=== PATIENT | female | born 1985 | race Caucasian/White ===

== ENCOUNTER 2017-08-13 09:26 | Emergency (ER) | payer OTHER, SELFPAY ==
[2017-08-13 09:34] VITALS: BP 132/93; PULSE 101; RESP 18; TEMP 37.4; O2SAT 99; BMI 19.1
--- NOTE | 2017-08-13 09:52 | ED_ITS ---
HPI - Wound/Laceration General Chief Complaint: Wound/Laceration Stated Complaint: LT PINKY FINGER CUT Time Seen by Provider: 08/13/17 09:29 Source: patient Mode of arrival: ambulatory Limitations: no limitations History of Present Illness HPI narrative: 31 year old woman tripped at home 45 minutes ago and landed on broken glass. Cut left pinky finger. Denies weakness, numbness or lack of sensation to the distal extremity Related Data Home Medications Medication Instructions Recorded Confirmed ibuprofen [Advil Liqui-Gel] 800 mg PO PRN PRN #0 07/07/16 Allergies Allergy/AdvReac Type Severity Reaction Status Date / Time mite-Dermatophagoides Allergy Mild Verified 08/13/17 09:34 farinae, zoe mold Allergy Mild Verified 08/13/17 09:34 Review of Systems Review of Systems All systems reviewed & are unremarkable except as noted in HPI and below Constitutional Denies chills, Denies fever(s), Denies lethargy and Denies weakness Eyes Denies change in vision, Denies eye discharge, Denies irritation and Denies loss of vision ENT Ears, Nose, Mouth, and Throat: Denies change in voice, Denies neck pain and Denies sore throat Cardiovascular Denies chest pain, Denies irregular heart rhythm, Denies lightheadedness, Denies palpitations, Denies dyspnea, Denies dyspnea on exertion and Denies orthopnea Respiratory Denies cough, Denies dyspnea, Denies dyspnea on exertion and Denies wheezing Gastrointestinal Gastrointestinal: Denies abdominal pain, Denies change in bowel habits, Denies diarrhea, Denies nausea and Denies vomiting Genitourinary Denies hematuria, Denies flank pain, Denies urinary incontinence and Denies urinary urgency Musculoskeletal Denies neck pain Integumentary/Breasts Denies pruritus, Denies erythema, Denies rash and Reports wounds Comments: laceration Neurologic Denies confusion, Denies loss of vision and Denies weakness Psychiatric Denies anxiety, Denies confusion, Denies depression, Denies homicidal ideation and Denies suicidal ideation Endocrine Denies palpitations Hematologic/Lymphatic Denies easy bruising Allergic/Immunologic Denies wheezing PFSH Social History Smoking Status: Current every day smoker Exam Initial Vital Signs Initial Vital Signs: Vital Signs Temperature 99.3 F 08/13/17 09:34 Pulse Rate 101 H 08/13/17 09:34 Respiratory Rate 18 08/13/17 09:34 Blood Pressure 132/93 H 08/13/17 09:34 Pulse Oximetry 99 08/13/17 09:34 Const General: cooperative and well developed Nutritional Appearance: well nourished Orientation: alert, awake, oriented x3 and not confused [facility] Head: normocephalic and atraumatic Ears: external ears normal and TM's normal bilaterally Nose: external nose normal and No nasal discharge Face and sinus: sinuses nontender, face symmetric, no sinus tenderness and No dry mucous membranes Mouth: oral mucosae normal and moist mucous membranes Teeth and gingiva: dentition normal Throat: tonsils normal and uvula midline Eyes General: appearance normal, both eyes and all related structures Eyelids: eyelids normal Conjunctivae: conjunctivae normal Sclera: sclerae normal Pupils: PERRL EOM: EOM intact bilaterally Neck Neck: normal visual inspection, trachea midline, No lymphadenopathy, No midline deformity and No JVD Lymphatic: No lymphedema Chest Chest: normal inspection of the chest Resp Effort & Inspection: normal respiratory effort, able to speak in complete sentences, no respiratory distress and no use of accessory muscles Auscultation: clear to auscultation bilaterally, no rales, no rhonchi and no wheezes Cardio Rate: regular rate Rhythm: regular rhythm Heart Sounds: no click, no gallops, no murmurs and no rubs Pulses: normal peripheral pulses GI Inspection: non-distended Palpation: soft, no hepatosplenomegaly, No guarding, No pulsatile mass and No tender Auscultation: normal bowel sounds Back/Spine/Pelvis Back: No CVA tenderness Cervical Spine: cervical ROM normal and No pain with cervical ROM Thoracic/Lumbar Spine: thoracic and lumbar spine normal to inspection Skin General: no rashes or lesions noted, No jaundice and No petechiae Other: 2.5 cm oblique laceration to the left 5th finger on the palmar aspect crossing the PIP joint . 1 cm linear laceration at the interspace between the 4th and 5th fingers. Significant bleeding from the medial aspect of the finger with concern for digital artery disruption, however she has normal cap refill less than 2 sec. There is no weakness to resisted flexion and extension as well as AD duction in AB duction of the 5th finger. She has distal sensation bilaterally of the 5th finger. When the wound is inspected the laceration does not extend below the subcutaneous tissue. No tendons or bones are seen. Neuro General: alert, oriented x3, gait normal and no focal motor deficits Cranial Nerves: CN's II-XI intact bilaterally Speech: speech normal Motor: strength 5/5 throughout Sensory Exam: no sensory deficits noted Extrem General: full ROM, no clubbing, cyanosis or edema, no pedal edema and no calf tenderness Psych Appearance: well kempt Mental Status: mental status grossly normal Attitude: cooperative Thought Content: normal and suicidality Judgment: judgment good Procedures Joint Aspiration/Injection Laceration 1: Site: hand Side (If applicable): left Size (cm): 2.5 Description: linear Depth: simple, single layer Local Anesthetic: lidocaine 1% Amount of anesthesia used (mL): 3 Pre-repair: wound explored, irrigated extensively and deep structures intact (except for possible disuption of digital artery on L side, bleeding controlled with pressure) Skin layer closed with: nylon Size (cm): 5-0 Number of sutures: 9 Technique: running Laceration 2: Site: hand Side (If applicable): left Size (cm): 1 Description: linear Depth: simple, single layer Local Anesthetic: lidocaine 1% Amount of anesthesia used (mL): 1 Pre-repair: wound explored, irrigated extensively and deep structures intact Skin layer closed with: nylon Size (cm): 5-0 Number of sutures: 2 Technique: simple, interrupted Course Vital Signs - 8 hr 08/13/17 09:34 08/13/17 10:48 Temperature 99.3 F Pulse Rate 101 H 100 H Respiratory Rate 18 16 Blood Pressure 132/93 H Blood Pressure [Left Arm] 113/81 H Pulse Oximetry 99 97 Discharge Plan Departure Patient Disposition: Home, Self-Care Clinical Impression: Finger laceration, Hand laceration, Fall from ground level Instructions: DI for Laceration Repair -- Finger Activity Restrictions/Additional Instructions: Thank you for trusting us with your care today. No dangerous findings were noted on your examination. Your lacerations were sutured with a total of 11 stitches. Please return and have these out in 10-14 days. Do not soak your hand while the stitches are in place. Return to the ER if you develop fevers, redness, drainage, or increasing pain in the area of the laceration. Prescriptions: No Action ibuprofen [Advil Liqui-Gel] 200 MG capsule 800 mg PO PRN PRNQty: 0 RF: 0 Referrals: Rolly Dickson MD [Primary Care Provider] -
[2017-08-13 10:48] VITALS: BP 113/81; PULSE 100; RESP 16; O2SAT 97
== END 2017-08-13 11:52 | disposition home or self-care (01) ==
PROVIDERS: Emergency Provider Emergency Medicine; Family Provider Family Medicine; PCP Family Medicine
DX: S61.217A Laceration without foreign body of left little finger without damage to nail, initial encounter (principal); S61.412A Laceration without foreign body of left hand, initial encounter; W25.XXXA Contact with sharp glass, initial encounter
CPT/HCPCS: 12002; 99282; 99283

== ENCOUNTER 2019-04-25 19:02 | Emergency (ER) | payer SELFPAY ==
[2019-04-25 19:24] VITALS: BP 120/77; PULSE 95; RESP 18; O2SAT 100
--- NOTE | 2019-04-25 20:07 | PC.NURSE ---
presents with rash over arms, and torso. Reports itchy scalp/hair line. Patient states rash was present and then immediately spread to a partner. Patient states she has had eczema her whole life but this feels different and on spot on top of left hand flared back up. Has improved intermittently with topical steroid.
--- NOTE | 2019-04-25 20:13 | ED.SKABFB ---
HPI - Skin/Abscess/Foreign Bdy <CRESCENCIO Stout - Last Filed: 04/25/19 20:24> General Chief complaint: Skin/Abscess/Foreign Body Stated complaint: states has a rash Time Seen by Provider: 04/25/19 19:44 History of Present Illness HPI narrative: 33-year-old female presents to the emergency department complaining of a rash starting 2 days ago on her abdomen and back. She states her partner also developed a rash. She woke up with this rash in noted was slightly pruritic. She states that has spread. She denies any fevers, chills, nausea, vomiting, diarrhea, chest pain, shortness of breath, or other concerns. She also reports a small area of redness on her left hand that has been there for the past year. It decreases with steroid cream that she has been applying but currently does not have any more cream. Patient has a history of asthma but states this feels different. She denies any numbness or tingling. Related Data Home Medications Medication Instructions Recorded Confirmed ibuprofen [Advil Liqui-Gel] 800 mg PO PRN PRN #0 07/07/16 Previous Rx's Medication Instructions Recorded triamcinolone acetonide 1 applictn TOP BID #28.4 gram 04/25/19 Allergies Allergy/AdvReac Type Severity Reaction Status Date / Time mite-Dermatophagoides Allergy Mild Verified 08/13/17 09:34 farinae, zoe mold Allergy Mild Verified 08/13/17 09:34 Review of Systems <CRESCENCIO Stout - Last Filed: 04/25/19 20:24> Review of Systems Narrative: REVIEW OF SYSTEMS: GENERAL: Denies fever or chills. HENT: Denies head trauma. EYE: Denies double vision or vision loss. CARDIOVASCULAR: Denies syncope. MUSCULOSKELETAL: Denies weakness, or deformities. INTEGUMENTARY: Complains of rash, see HPI. NEURO: Denies numbness or tingling. Patient History <CRESCENCIO Stout - Last Filed: 04/25/19 20:24> Medical History No significant medical problems (Acute) Social History Smoking Status: Current every day smoker Smoking Status: Current every day smoker alcohol intake frequency: a few times a week Substance Use Type: marijuana Exam <CRESCENCIO Stout - Last Filed: 04/25/19 20:24> Initial Vital Signs Initial Vital Signs: Vital Signs Pulse Rate 95 H 04/25/19 19:24 Respiratory Rate 18 04/25/19 19:24 Blood Pressure 120/77 04/25/19 19:24 Pulse Oximetry 100 04/25/19 19:24 PHYSICAL EXAMINATION: GENERAL: Well groomed, alert, and cooperative. Answers questions promptly and appropriately. Vital signs noted. HENT: Normocephalic, atraumatic. RESPIRATORY: Normal respiratory rate, trachea midline, airway patent. No stridor, nasal flaring or accessory muscle use. MUSCULOSKELETAL: Normal gait and coordination. Equal tone and mass bilaterally. EXTREMITIES: CMS intact. Moves all extremities. SKIN: Warm, dry, soft, appropriate color for ethnicity. There are multiple small slightly indurated annular lesions noted to abdomen and chest. No significant erythema, fluctuation, or purulent drainage. No excoriation. Rash does not extend to groin, and between fingers, or toes. No tunneling noted. There is a small 4 cm x 3 cm patch of non indurated petechiae noted to left hand (patient reports this has been present x 1 year). NEURO: Alert and Oriented X 3. Good coordination. PSYCH: Appropriate affect and mood. <Dianne Baum DO - Last Filed: 04/26/19 01:27> Initial Vital Signs Initial Vital Signs: Vital Signs Pulse Rate 95 H 04/25/19 19:24 Respiratory Rate 18 04/25/19 19:24 Blood Pressure 120/77 04/25/19 19:24 Pulse Oximetry 100 04/25/19 19:24 Course <CRESCENCIO Stout - Last Filed: 04/25/19 20:24> Vital Signs Vital signs: Vital Signs - 8 hr 04/25/19 19:24 04/25/19 20:22 Pulse Rate 95 H 93 H Respiratory Rate 18 16 Blood Pressure 120/77 131/85 Pulse Oximetry 100 100 <Dianne Baum DO - Last Filed: 04/26/19 01:27> Vital Signs Vital signs: Vital Signs - 8 hr 04/25/19 19:24 04/25/19 20:22 Pulse Rate 95 H 93 H Respiratory Rate 18 16 Blood Pressure 120/77 131/85 Pulse Oximetry 100 100 [facility] - Skin/Abscess/Foreign Bdy <CRESCENCIO Stout - Last Filed: 04/25/19 20:24> Medical Records Attestation: I reviewed the patient's medical records. Lab Data Attestation: I reviewed the patient's lab results. [facility] Narrative Medical decision making narrative: 33-year-old female presents emergency department complaining of a rash starting 2 days ago. Differential includes bedbugs (most likely due to appearance of rash, the fact that her partner has also developed a rash, and description of pruritus), eczema (also possible due to history of asthma), and less likely scabies due to location and lack of tunneling. Additionally, patient has had a area of redness on her left hand for the past year. She was referred to dermatology for this for further evaluation. Patient was given triamcinolone cream to apply to rash. Patient was instructed to wash clothes and linens in hot water and bag stuffed animal and rugs. Return precautions given and follow-up instructions discussed. Patient agreed to plan of care and verbalized understanding. Discharge Plan Departure Patient Disposition: Home Clinical Impression: Eczema Qualifiers: Eczema type: other Qualified Code(s): L30.8 - Other specified dermatitis Bedbug bite Qualifiers: Encounter type: initial encounter Qualified Code(s): W57.XXXA - Bitten or stung by nonvenomous insect and other nonvenomous arthropods, initial encounter Discharge Date/Time: 04/25/19 20:23 Instructions: DI for Atopic Dermatitis - Adult, DI for Bed Bug Bites Activity Restrictions/Additional Instructions: Thank you for entrusting me with your care today. As discussed, appears you may have bedbug bites. Please wash all your linen with extra water, bag things like rugs and stuffed animals in plastic bags for 2-3 days, this is the only way to kill the bug. I prescribed you triamcinolone cream which can help relieve the itching of the bite as well as the patch of eczema on your scan. I have referred due to Dermatology for the patch on your left hand. Please call them and schedule an appointment. Follow up with your primary care provider in 1-2 weeks for further evaluation if symptoms continue. Return emergency department for new or worsening symptoms such as chest pain, abdominal pain, high fevers, or other concerns. Prescriptions: New triamcinolone acetonide 0.1 % cream 1 applictn TOP BID Qty: 28.4 RF: 0 No Action ibuprofen [Advil Liqui-Gel] 200 MG capsule 800 mg PO PRN PRNQty: 0 RF: 0 Referrals: Rolly Dickson MD [Primary Care Provider] - Ede Acosta DO [Non-Staff] - (Patch of rash on hand for 1 year)
[2019-04-25 20:22] VITALS: BP 131/85; PULSE 93; RESP 16; O2SAT 100
== END 2019-04-25 20:23 | disposition home or self-care (01) ==
PROVIDERS: Emergency Provider Nurse Practitioner; Family Provider Family Medicine; PCP Family Medicine
DX: L30.8 Other specified dermatitis (principal); W57.XXXA Bitten or stung by nonvenomous insect and other nonvenomous arthropods, initial encounter
CPT/HCPCS: 99281

== ENCOUNTER 2019-07-07 15:24 | Emergency (ER) | payer OTHER, MEDICAID, SELFPAY ==
[2019-07-07 15:29] VITALS: BP 135/73; PULSE 104; RESP 18; TEMP 37.3; O2SAT 98
--- NOTE | 2019-07-07 15:40 | ED.SKABFB ---
HPI - Skin/Abscess/Foreign Bdy <CRESCENCIO Stout - Last Filed: 07/07/19 18:39> General Chief complaint: Skin/Abscess/Foreign Body Stated complaint: states two abcesses Time Seen by Provider: 07/07/19 15:24 Source: patient Mode of arrival: Ambulatory Limitations: no limitations History of Present Illness HPI narrative: 33-year-old female presents emergency department for complaint of multiple abscesses. She states she injects heroin, last used heroin about 5 days ago into her left antecubital area. She noticed an abscess developing seen after, she states the area has been red and painful for the past 5 days. She also noticed a small raised area to her left thigh, she states she used her when this area possibly a day or so before using in her left antecubital. Patient denies any fevers, chills, nausea, vomiting, diarrhea, chest pain, shortness of breath, or any other concerns. She denies any other medical issues or allergies to medications. Patient states she has a prescription for Suboxone at the pharmacy, she plans to pick this up today. Related Data Previous Rx's Medication Instructions Recorded doxycycline hyclate 100 mg PO BID 7 Days #14 cap 07/07/19 Allergies Allergy/AdvReac Type Severity Reaction Status Date / Time mite-Dermatophagoides Allergy Mild Verified 07/07/19 15:32 farinae, zoe mold Allergy Mild Verified 07/07/19 15:32 Review of Systems <CRESCENCIO Stout - Last Filed: 07/07/19 18:39> Review of Systems Narrative: REVIEW OF SYSTEMS: GENERAL: Denies fever or chills. HENT: Denies head trauma. EYE: Denies double vision or vision loss. CARDIOVASCULAR: Denies syncope. MUSCULOSKELETAL: Denies weakness, or deformities. INTEGUMENTARY: Complains of abscess, see HPI. NEURO: Denies numbness or tingling. Patient History <CRESCENCIO Stout - Last Filed: 07/07/19 18:39> Medical History Heroin abuse (Acute) Social History Smoking Status: Current every day smoker Smoking Status: Current every day smoker alcohol intake frequency: a few times a week Substance Use Type: marijuana and heroin Exam <CRESCENCIO Stout - Last Filed: 07/07/19 18:39> Initial Vital Signs Initial Vital Signs: Vital Signs Temperature 99.1 F 07/07/19 15:29 Pulse Rate 104 H 07/07/19 15:29 Respiratory Rate 18 07/07/19 15:29 Blood Pressure 135/73 07/07/19 15:29 Pulse Oximetry 98 07/07/19 15:29 PHYSICAL EXAMINATION: GENERAL: Well groomed, alert, and cooperative. Answers questions promptly and appropriately. Vital signs noted. HENT: Normocephalic, atraumatic. RESPIRATORY: Normal respiratory rate, trachea midline, airway patent. No stridor, nasal flaring or accessory muscle use. MUSCULOSKELETAL: Normal gait and coordination. Equal tone and mass bilaterally. EXTREMITIES: CMS intact. Moves all extremities. SKIN: Warm, dry, soft, appropriate color for ethnicity. A approximately 2 cm x 5 cm abscess noted to left medial antecubital, some surrounding erythema, increased skin temperature, tenderness with palpation. A less indurated 4 cm in diameter area noted to left medial thigh. Small amount of fluctuation, increased skin temperature and surrounding erythema. Small amount of scar tissue and ecchymosis noted to right antecubital, no erythema or tenderness to this area. NEURO: Alert and Oriented X 3. Good coordination. PSYCH: Appropriate affect and mood. <aVnna Sharif MD - Last Filed: 07/09/19 18:04> Initial Vital Signs Initial Vital Signs: Vital Signs Temperature 99.1 F 07/07/19 15:29 Pulse Rate 104 H 07/07/19 15:29 Respiratory Rate 18 07/07/19 15:29 Blood Pressure 135/73 07/07/19 15:29 Pulse Oximetry 98 07/07/19 15:29 Procedures <CRESCENCIO Stout - Last Filed: 07/07/19 18:39> Abscess I/D I&D #1: Site: upper extremity Side (if applicable): left Local Anesthetic: lidocaine 1% and with bicarb Amount of anesthesia used (mL): 4 Technique: incised with #11 blade Amount of fluid expressed (mL): 6 Irrigation: Yes Packing used?: none Complications: pain I&D #2: Site: lower extremity Side (if applicable): left Local Anesthetic: lidocaine 1% and bupivacaine 0.5% Amount of anesthesia used (mL): 3 Amount of fluid expressed (mL): 3 Irrigation: No Packing used?: none Complications: pain Scores <CRESCENCIO Stout - Last Filed: 07/07/19 18:39> qSOFA Altered Mental Status (GCS <15): No Respiratory rate greater than/equal to 22: No Systolic blood pressure less than or equal to 100: No qSOFA Total: 0 0-1 Not High Risk 1-3 High risk Course <CRESCENCIO Stout - Last Filed: 07/07/19 18:39> Course Course Narrative: Patient tolerated procedure well. Orders Ordered: Discontinued Medications Ketorolac Tromethamine (Toradol) 30 mg IM NOW ONE Stop: 07/07/19 15:45 Last Admin: 07/07/19 16:01 Dose: 30 mg Documented by: ABE Lidocaine/Sodium Bicarbonate (Buffered Lidocaine 10 Ml Syr) 10 ml INJ NOW ONE Stop: 07/07/19 15:45 Last Admin: 07/07/19 16:02 Dose: 10 ml Documented by: ABE Vital Signs Vital signs: Vital Signs - 8 hr 07/07/19 15:29 Temperature 99.1 F Pulse Rate 104 H Respiratory Rate 18 Blood Pressure 135/73 Pulse Oximetry 98 <Vanna Sharif MD - Last Filed: 07/09/19 18:04> Orders Ordered: Discontinued Medications Ketorolac Tromethamine (Toradol) 30 mg IM NOW ONE Stop: 07/07/19 15:45 Last Admin: 07/07/19 16:01 Dose: 30 mg Documented by: ABE Lidocaine/Sodium Bicarbonate (Buffered Lidocaine 10 Ml Syr) 10 ml INJ NOW ONE Stop: 07/07/19 15:45 Last Admin: 07/07/19 16:02 Dose: 10 ml Documented by: ABE Vital Signs Vital signs: Vital Signs - 8 hr 07/07/19 15:29 Temperature 99.1 F Pulse Rate 104 H Respiratory Rate 18 Blood Pressure 135/73 Pulse Oximetry 98 MDM - Skin/Abscess/Foreign Bdy <CRESCENCIO Stotu - Last Filed: 07/07/19 18:39> Medical Records Attestation: I reviewed the patient's medical records. Lab Data Attestation: I reviewed the patient's lab results. MDM Narrative Medical decision making narrative: 33-year-old female with history of IV heroin use, presenting to the emergency department with an abscess on her left arm and a small abscess on her left leg. I &D of abscesses were performed, fluid was expressed. There was some surrounding erythema which is concerning for cellulitis so doxycycline was prescribed. Patient was offered Suboxone treatment, she states she has a prescription for this and is going to pick it up from the pharmacy today. Less concern for sepsis due to lack of fever. Patient is hemodynamically stable and well-appearing. Less likely opioid withdrawal due to lack of severe pain, agitation, nausea vomiting. However, her heart rate was elevated, this could be due to some narcotic withdrawal. Patient was given very strict return precautions. Patient agreed to plan of care verbalized understanding. Discharge Plan Departure Patient Disposition: Home Clinical Impression: Abscess Discharge Date/Time: 07/07/19 16:44 Instructions: DI for Skin Abscess Activity Restrictions/Additional Instructions: Thank you for entrusting me with your care today. As discussed, your abscesses for drained, you may continue to have drainage for the next few days. You can wash the area daily with soap and water, do not apply Neosporin until the area is form scabs. I prescribed you an antibiotic, please take this as directed. Follow up with your primary care provider in the next 1-2 weeks for further evaluation if symptoms continue or return to the emergency department for a recheck if you continued to have symptoms or signs of worsening infection such as fever. Prescriptions: New doxycycline hyclate 100 mg capsule 100 mg PO BID 7 Days Qty: 14 RF: 0 Referrals: Tara Mcghee [Other] <Vanna Sharif MD - Last Filed: 07/09/19 18:04> [facility] Att[facility]: I was immediately available in the department for consultation throughout this patient's visit. I agree with documentation as above. Vanna Sharif MD
[2019-07-07] MEDS: KETOROLAC 60 MG/2 ML VIAL 30 MG IM (16:01)
[2019-07-07] MEDS: LIDO 1%/SOD BICARB 8.4% (10ML) 10 ML SYRINGE INJ (16:02)
== END 2019-07-07 16:44 | disposition home or self-care (01) ==
PROVIDERS: Emergency Provider Nurse Practitioner; Family Provider Family Medicine
DX: L02.414 Cutaneous abscess of left upper limb (principal); L02.416 Cutaneous abscess of left lower limb; F11.20 Opioid dependence, uncomplicated
CPT/HCPCS: 10061; 96372; 99283; J1885

== ENCOUNTER 2021-11-19 18:16 | Emergency (ER) | payer OTHER, MEDICAID, SELFPAY ==
[2021-11-19 18:20] VITALS: BP 125/72; PULSE 95; RESP 17; TEMP 36.8; O2SAT 100; BMI 20.1
--- NOTE | 2021-11-19 19:13 | ED.FEMALEGU ---
HPI - Female Genitourinary <CRESCENCIO Estrada - Last Filed: 11/19/21 19:57> General Chief complaint: Urogenital-Female Stated complaint: Lower left back pain Time Seen by Provider: 11/19/21 18:52 Source: patient Mode of arrival: Ambulatory History of Present Illness HPI Narrative: This is a 36-year-old female who presents to the emergency department complaining of UTI symptoms for 1 week, states that it has progressed and she has right-sided flank pain, denies having a fever but feels ill. She denies any vomiting, endorses nausea, denies any chest pain, shortness of breath. She states that she is 2 weeks clean with a history of heroin abuse. She states that she has tried Suboxone in the past and it worked very well for her. She states that she recently started her menses. She denies any history of kidney stones, denies any abnormal vaginal discharge other than starting her menses, denies any recent or new sexual partners. Her test was negative today. She is a difficult IV stick and nursing has been unable to obtain IV access. Lab was called for phlebotomy and was unable to draw blood as well. Patient denies fever, chills, abnormal mentation or feeling weak. She states that her pain is the most uncomfortable. Related Data Home Medications Medication Instructions Recorded Confirmed triamcinolone acetonide 0.1 % applic topical 07/28/20 07/28/20 topical cream Previous Rx's Medication Instructions Recorded ketorolac 10 mg tablet 10 mg PO TID PRN pain 5 days #14 11/19/21 tabs ondansetron 4 mg disintegrating 4 mg PO Q8H PRN nausea and 11/19/21 tablet vomiting #10 tabs phenazopyridine 100 mg tablet 100 mg PO TID PRN pain 6 doses #7 11/19/21 (Pyridium) tabs sulfamethoxazole 800 1 tab PO BID complicated uti 7 11/19/21 mg-trimethoprim 160 mg tablet days #14 tabs (Bactrim DS) Allergies Allergy/AdvReac Type Severity Reaction Status Date / Time mite-Dermatophagoides Allergy Mild Verified 07/07/19 15:32 farinae, zoe mold Allergy Mild Verified 07/07/19 15:32 Review of Systems <CRESCENCIO Estrada - Last Filed: 11/19/21 19:57> Review of Systems Narrative: Review of systems is negative for acute abnormalities unless otherwise noted in HPI Patient History <CRESCENCIO Estrada - Last Filed: 11/19/21 19:57> Medical History Heroin abuse alcohol intake frequency: a few times a week Substance Use Type: marijuana and heroin Exam <CRESCENCIO Estrada - Last Filed: 11/19/21 19:57> Narrative Exam Narrative: Reviewed vitals signs and nursing notes. General: cooperative, comfortable, in no acute distress, well groomed, appears tired, calm, clear speech, afebrile HEENT: symmetrical facial expressions, moist mucous membranes, EOM I Cardiovascular: regular rate and rhythm, no peripheral edema, warm extremities Respiratory: normal effort, able to speak in complete sentences, without wheezing, stridor, or abnormal breath sounds. No retractions or tachypnea. GI: abdomen soft, nontender to palpation, nondistended, without masses, rebound tenderness or exquisite tenderness with exam. MSK: moves all extremities, neurovascularly intact, no weakness, normal tone Skin: brisk capillary refill, without pallor or erythema Neuro: normal speech and cognition, A&O x3, ambulatory, clear speech Psych: mental status is grossly normal, congruent mood, normal affect, pleasant and cooperative Initial Vital Signs Initial Vital Signs: Vital Signs Temperature 98.2 F 11/19/21 18:20 Pulse Rate 95 H 11/19/21 18:20 Respiratory Rate 17 11/19/21 18:20 Blood Pressure 125/72 11/19/21 18:20 Pulse Oximetry 100 11/19/21 18:20 Oxygen Delivery Method 11/19/21 18:20 <Tuan Rodriguez MD - Last Filed: 11/19/21 20:31> Initial Vital Signs Initial Vital Signs: Vital Signs Temperature 98.2 F 11/19/21 18:20 Pulse Rate 95 H 11/19/21 18:20 Respiratory Rate 17 11/19/21 18:20 Blood Pressure 125/72 11/19/21 18:20 Pulse Oximetry 100 11/19/21 18:20 Oxygen Delivery Method 11/19/21 18:20 Course <CRESCENCIO Estrada - Last Filed: 11/19/21 19:57> Orders Ordered: ED Orders 11/19/21 18:30 Urine Culture Stat Urine Microscopic Stat 11/19/21 18:36 EKG-12 Lead Stat 11/19/21 19:15 Chlamydia Gonorrhea PCR -URINE Stat 11/19/21 19:25 Consult to [employer] - [employer]er Stat Discontinued Medications Acetaminophen (Acetaminophen 325 Mg Tablet) 975 mg PO NOW ONE Stop: 11/19/21 19:12 Last Admin: 11/19/21 19:30 Dose: 975 mg Documented By: SACHI Ceftriaxone Sodium (Ceftriaxone 2,000 Mg Vial) 1,000 mg IM NOW ONE Stop: 11/19/21 19:12 Last Admin: 11/19/21 19:38 Dose: Not Given Documented By: SACHI Ceftriaxone Sodium (Ceftriaxone 2,000 Mg Vial) 1,000 mg IM NOW ONE Stop: 11/19/21 19:46 Last Admin: 11/19/21 19:48 Dose: 1,000 mg Documented By: SACHI Ketorolac Tromethamine (Ketorolac 30 Mg/Ml Vial) 15 mg IV NOW ONE Stop: 11/19/21 19:01 Last Admin: 11/19/21 19:13 Dose: Not Given Documented By: JALEESA Ketorolac Tromethamine (Ketorolac 30 Mg/Ml Vial) 30 mg IM NOW ONE Stop: 11/19/21 19:15 Last Admin: 11/19/21 19:30 Dose: 30 mg Documented By: SACHI Lidocaine HCl (Lidocaine 1% 20 Ml) 20 ml INJ NOW ONE Stop: 11/19/21 19:37 Last Admin: 11/19/21 19:48 Dose: 20 ml Documented By: SACHI Ondansetron HCl (Ondansetron 4 Mg/2 Ml Inj) 4 mg IV NOW ONE Stop: 11/19/21 19:01 Last Admin: 11/19/21 19:13 Dose: Not Given Documented By: JALEESA Ondansetron HCl (Ondansetron 4 Mg Odt) 4 mg SL NOW ONE Stop: 11/19/21 19:12 Last Admin: 11/19/21 19:30 Dose: 4 mg Documented By: SACHI Vital Signs Vital signs: Vital Signs - 8 hr 11/19/21 18:20 11/19/21 19:50 Temperature 98.2 F Pulse Rate 95 H 87 Respiratory Rate 17 Blood Pressure 125/72 135/72 Pulse Oximetry 100 100 Oxygen Delivery Method Room Air Room Air <Tuan Rodriguez MD - Last Filed: 11/19/21 20:31> Orders Ordered: ED Orders 11/19/21 18:30 Urine Culture Stat Urine Microscopic Stat 11/19/21 18:36 EKG-12 Lead Stat 11/19/21 19:15 Chlamydia Gonorrhea PCR -URINE Stat 11/19/21 19:25 Consult to [employer] - [employer] Installer Stat Discontinued Medications Acetaminophen (Acetaminophen 325 Mg Tablet) 975 mg PO NOW ONE Stop: 11/19/21 19:12 Last Admin: 11/19/21 19:30 Dose: 975 mg Documented By: SACHI Ceftriaxone Sodium (Ceftriaxone 2,000 Mg Vial) 1,000 mg IM NOW ONE Stop: 11/19/21 19:12 Last Admin: 11/19/21 19:38 Dose: Not Given Documented By: SACHI Ceftriaxone Sodium (Ceftriaxone 2,000 Mg Vial) 1,000 mg IM NOW ONE Stop: 11/19/21 19:46 Last Admin: 11/19/21 19:48 Dose: 1,000 mg Documented By: SACHI Ketorolac Tromethamine (Ketorolac 30 Mg/Ml Vial) 15 mg IV NOW ONE Stop: 11/19/21 19:01 Last Admin: 11/19/21 19:13 Dose: Not Given Documented By: JALEESA Ketorolac Tromethamine (Ketorolac 30 Mg/Ml Vial) 30 mg IM NOW ONE Stop: 11/19/21 19:15 Last Admin: 11/19/21 19:30 Dose: 30 mg Documented By: SACHI Lidocaine HCl (Lidocaine 1% 20 Ml) 20 ml INJ NOW ONE Stop: 11/19/21 19:37 Last Admin: 11/19/21 19:48 Dose: 20 ml Documented By: SACHI Ondansetron HCl (Ondansetron 4 Mg/2 Ml Inj) 4 mg IV NOW ONE Stop: 11/19/21 19:01 Last Admin: 11/19/21 19:13 Dose: Not Given Documented By: JALEESA Ondansetron HCl (Ondansetron 4 Mg Odt) 4 mg SL NOW ONE Stop: 11/19/21 19:12 Last Admin: 11/19/21 19:30 Dose: 4 mg Documented By: SACHI Vital Signs Vital signs: Vital Signs - 8 hr 11/19/21 18:20 11/19/21 19:50 Temperature 98.2 F Pulse Rate 95 H 87 Respiratory Rate 17 Blood Pressure 125/72 135/72 Pulse Oximetry 100 100 Oxygen Delivery Method Room Air Room Air MDM - Female Genitourinary <Juliette Darleen [employer] SUPER[employer]OR - Last Filed: 11/19/21 19:57> Lab Data Labs: Lab Results 11/19/21 Range/Units 18:30 Urine RBC 5-10/hpf H (0-5/HPF) Urine WBC 5-10/hpf H (0-5/HPF) Ur Squamous Epith Cells 0-1 /hpf (0-5/HPF) Urine Bacteria Few (2-10) H (None) Ur Culture Indicated? Culture not indicate Point of Care Testing Test Results Negative Urine Dip Bedside Urine Glucose Negative Bedside Urine Bilirubin - Negative Bedside Urine Ketone - Negative Urine Specific [place] 1.020 Bedside Urine Occult Blood +++ Bedside Urine pH 6 Bedside Urine Protein + 30 Bedside Urine Urobilinogen - Negative Bedside Urine Nitrite - Negative Bedside Urine Leukocytes ++ 125 Esterase MDM Narrative Medical decision making narrative: This is a pleasant 36-year-old female who presents to the emergency department with 1 week of suprapubic pressure, urinary urgency and frequency, dysuria and states that it has progressed to right-sided flank pain and now she has fatigue, nausea and has ongoing urinary symptoms. Her urine today shows blood, leukocytes, and bacteria, culture is pending. Patient started her menses today, and her test was negative. Patient had multiple attempts at IV placement which were all unsuccessful, she also had 3 attempts from phlebotomy to obtain lab work and they were unsuccessful. No blood was at obtained for cultures or other. She was given 1 g of IM Rocephin for acute complicated cystitis. She does not have CVA tenderness on exam, no other abdominal tenderness on exam, breath sounds are clear throughout, discuss importance of patient to return to the emergency department for persistent fever, discussed risks of endocarditis or blood stream infection from IVDA. Patient was given resources for outpatient treatment, I recommended she follow-up at [facility] for another trial of Suboxone or methadone. Social work consult was placed for patient to follow-up with as an outpatient for a counselor, primary care provider, and detox resources if helpful. Patient states that she will hydrate when she goes home, and understands to come back to the emergency department for any worsening of her symptoms, if she develops chills and a fever, if she has any worsening of any other symptom. Patient was given very strict return precautions, understands that she may need to come back for IV antibiotics and attempted IV placement. Urine gonorrhea and chlamydia are pending She was prescribed 7 days of b.i.d. Bactrim, Pyridium, ketorolac, and Zofran. No peritoneal signs on abdominal exam. Patient remains p.o. tolerant. Serial abdominal exam without increase in abdominal pain. Given history and exam, low suspicion for acute abdominal process, such as acute cholecystitis, pancreatitis, perforated viscus, atypical appendicitis, colitis, diverticulitis or torsion. Extensive conversation about ER return precautions and need for close follow-up. Patient is appropriate and amenable to discharge home. Vital signs are stable on repeat examination is unremarkable. Patient has been informed of results. Patient has been given strict return to ER precautions for any new or worsening symptoms. Patient understands to follow up closely with outpatient providers as instructed. Patient understands plan and agrees to discharge home. All questions and concerns answered at this time. <Tuan Rodriguez MD - Last Filed: 11/19/21 20:31> Lab Data Labs: Lab Results 11/19/21 Range/Units 18:30 Urine RBC 5-10/hpf H (0-5/HPF) Urine WBC 5-10/hpf H (0-5/HPF) Ur Squamous Epith Cells 0-1 /hpf (0-5/HPF) Urine Bacteria Few (2-10) H (None) Ur Culture Indicated? Culture not indicate Point of Care Testing Test Results Negative Urine Dip Bedside Urine Glucose Negative Bedside Urine Bilirubin - Negative Bedside Urine Ketone - Negative Urine Specific [place] 1.020 Bedside Urine Occult Blood +++ Bedside Urine pH 6 Bedside Urine Protein + 30 Bedside Urine Urobilinogen - Negative Bedside Urine Nitrite - Negative Bedside Urine Leukocytes ++ 125 Esterase Discharge Plan Departure Patient Disposition: Home Clinical Impression: Complicated urinary tract infection Instructions: Urinary Tract Infection Activity Restrictions/Additional Instructions: *You have been diagnosed with a complicated UTI. This is a bladder infection that has progressed. Please try and stay hydrated, drink extra so that you do not get more ill. Please use Zofran as needed for nausea, return to the emergency department if you have any worsening of your symptoms. Please stay hydrated, seek out the [facility] pain clinic or other pain management prescriber for treatment. Please try and stay clean, this is a big risk your health. If you have any worsening, it would be ideal to obtain lab work and blood cultures to see if there is anything else contributing to your symptoms today. I hope you feel better soon, please come back for any worsening whatsoever. *What to do: *Please continue to take your regular medications as directed. [ x] New medication prescriptions sent to your pharmacy: [ [facility]] [ ] New medication written as a paper prescription [ ] No new medications given *Please follow up with your primary care provider in 2-3 days, call for an appointment. Let them know you were seen in the Emergency Department and that we asked that you be seen for follow-up. We will electronically transmit a record of today's note if your PCP is in our system *If you do not have a primary care provider please contact [phone] to establish care with one of the [facility] primary care providers. *Return to Emergency Department if you should have any new, worsening, or concerning symptoms, such as [fever greater than 101F, chills, worsening pain, persistent vomiting or other bothersome symptoms]. Please [employer] your antibiotic Prescriptions: New sulfamethoxazole-trimethoprim [Bactrim DS] 800-160 mg tablet 1 tab PO BID 7 Days Qty: 14 0RF phenazopyridine [Pyridium] 100 mg tablet 100 mg PO TID PRN (Reason: pain) Qty: 7 0RF ketorolac 10 mg tablet 10 mg PO TID PRN (Reason: pain) 5 Days Qty: 14 0RF Rx Instructions: Please take with food and water ondansetron 4 mg tablet,disintegrating 4 mg PO Q8H PRN (Reason: nausea and vomiting) Qty: 10 0RF No Action triamcinolone acetonide 0.1 % cream topical Label Comments: APPLY TO THE AFFECTED AREA TWO TIMES DAILY. Referrals: [facility] [Provider Group] Visit Report Forms: Patient Portal/API <Tuan Rodriguez MD - Last Filed: 11/19/21 20:31> [facility] ED Attending Cydneyature Attestation: I was immediately available in the department for consultation. ?This documentation has been reviewed and I agree with assessment and plan. Supervised by Tuan Rodriguez MD
[2021-11-19 19:27] LABS: Bacteria Urine Few (2-10); RBC Urine 5-10/HPF (0-5/HPF); Squamous Epithelial Cell Urine 0-1 /HPF (0-5/HPF); WBC Urine 5-10/HPF (0-5/HPF)
[2021-11-19] MEDS: ACETAMINOPHEN 325 MG TABLET 975 MG PO (19:30)
[2021-11-19] MEDS: KETOROLAC 30 MG/ML VIAL IM (19:30)
[2021-11-19] MEDS: ONDANSETRON 4 MG ODT SL (19:30)
[2021-11-19] MEDS: cefTRIAXone 2,000 MG VIAL 1000 MG IM (19:48)
[2021-11-19] MEDS: LIDOCAINE 1% 20 ML INJ (19:48)
[2021-11-19 19:50] VITALS: BP 135/72; PULSE 87; O2SAT 100
[2021-11-19 21:18] LABS: Urine N gonorrhoeae NOT DETECTED
[2021-11-19 21:21] LABS: Urine Chlamydia NOT DETECTED
== END 2021-11-19 20:01 | disposition home or self-care (01) ==
PROVIDERS: Emergency Medicine; Emergency Provider Nurse Practitioner Critical Care Medicine; Family Provider Family Medicine
DX: N39.0 Urinary tract infection, site not specified (principal)
CPT/HCPCS: 81003; 81015; 81025; 87077; 87086; 87147; 87491; 87591; 96372; 99283; J0696; J1885

== ENCOUNTER 2022-01-09 23:21 | Emergency (ER) | payer OTHER, MEDICAID, SELFPAY ==
[2022-01-09 23:30] VITALS: BP 137/80; PULSE 114; PULSE 117; RESP 16; TEMP 36.7; O2SAT 100; BMI 21.2
[2022-01-09 23:53] VITALS: PULSE 98; O2SAT 96
[2022-01-10] VITALS: BP 138/67
[2022-01-10 00:30] VITALS: BP 133/63
--- NOTE | 2022-01-10 00:53 | ED_ITS ---
HPI - Skin/Abscess/Foreign Bdy General Chief complaint: Skin/Abscess/Foreign Body Stated complaint: LT. arm infected Time Seen by Provider: 01/09/22 23:56 Source: patient Mode of arrival: Ambulatory Limitations: no limitations History of Present Illness HPI narrative: 36-year-old woman with a history of opioid and methamphetamine use disorder had been doing well without IV injecting but recently had return to IV use. She comes in complaining of an abscess developing on the left forearm along the vein that is frequently used for injection and also of paronychia infection on the right finger. She states that she has been feeling somewhat achy and had some chills but no specific fevers, cough, palpitations, vomiting, diarrhea, abdominal pain. Related Data Home Medications Medication Instructions Recorded Confirmed triamcinolone acetonide 0.1 % applic topical 07/28/20 07/28/20 topical cream Previous Rx's Medication Instructions Recorded ondansetron 4 mg disintegrating 4 mg PO Q8H PRN nausea and 11/19/21 tablet vomiting #10 tabs phenazopyridine 100 mg tablet 100 mg PO TID PRN pain 6 doses #7 11/19/21 (Pyridium) tabs sulfamethoxazole 800 1 tab PO BID #14 tabs 01/10/22 mg-trimethoprim 160 mg tablet (Bactrim DS) Allergies Allergy/AdvReac Type Severity Reaction Status Date / Time mite-Dermatophagoides Allergy Mild Verified 07/07/19 15:32 farinae, zoe mold Allergy Mild Verified 07/07/19 15:32 Review of Systems Review of Systems Narrative: Remainder of complete review of systems is otherwise unremarkable except for that included in the HPI. Patient History Medical History (Updated 01/10/22 @ 01:00 by Vanna Sharif MD) Heroin abuse Social History Smoking Status: Current every day smoker Smoking Status: Current every day smoker alcohol intake frequency: a few times a week Substance Use Type: marijuana, heroin and methamphetamine Exam Initial Vital Signs Initial Vital Signs: Vital Signs Temperature 98.1 F 01/09/22 23:30 Pulse Rate 114 H 01/09/22 23:30 Respiratory Rate 16 01/09/22 23:30 Blood Pressure 137/80 01/09/22 23:30 Pulse Oximetry 100 01/09/22 23:30 Oxygen Delivery Method 01/09/22 23:30 General: Chronically ill-appearing but in no acute distress. Able to give a complete and coherent history. HEENT: Moist mucous membranes, normal sclera with reactive pupils, Neck: No JVD, supple Respiratory: Lungs are clear to auscultation, no wheezing no rales no rhonchi. Full and symmetrical air movement Cardiac: Regular rate and rhythm, no murmurs with careful auscultation no bruits Abdomen: Soft, nontender, good bowel tones, no flank pain Skin: Warm and dry, multiple track lopez. Left upper extremity has fullness on the volar aspect. It surrounds vein that scarred with track lopez. Slight erythema but no demarcation, obvious fluctuance no lymphangitis streaking. There is a central area approximately 4 mm across that looks like will be the point of drainage once the abscess fully develops Neurologic: Grossly neurologically intact with no obvious asymmetries or abnormalities Extremities: Hyperemic hands somewhat edematous. Minor paronychial infection on the right index finger Psych: Cooperative, appropriate insight and affect Bedside ultrasound of the left forearm indicates induration but no formed abscess cavity yet. Course Orders Ordered: Discontinued Medications Trimethoprim/Sulfamethoxazole (Trimeth/Sulfa 160/800 Prepack) 1 bottle MISC SEEINSTR ONE Stop: 01/10/22 00:52 Vital Signs Vital signs: Vital Signs - 8 hr 01/09/22 23:30 Temperature 98.1 F Pulse Rate 114 H Respiratory Rate 16 Blood Pressure 137/80 Pulse Oximetry 100 Oxygen Delivery Method Room Air MDM - Skin/Abscess/Foreign Bdy MDM Narrative Medical decision making narrative: 36-year-old woman with opioid use disorder return to use with IVs. Developing cellulitis the right forearm and significant induration without fully formed abscess yet. I and D would not be useful at this time. Minor paronychial infection reassurance is given. Nothing signs of sepsis or suggestions of endocarditis. Will start her on Septra and ask her to continue to soak the forearm to see if she can get it begin draining over the next day or 2. I explained to her that there was no obvious formed abscess to drain this evening. Questions were answered and she is safe for home discharge Discharge Plan Departure Patient Disposition: Home Clinical Impression: Cellulitis of arm, left, Opioid use disorder Instructions: DI for Cellulitis -- Adult, DI for Skin Abscess Activity Restrictions/Additional Instructions: Thank you for coming in today You definitely have an infection developing in the left forearm however it is not yet formed into an abscess. Cutting into it this evening would not be helpful. I am going to have you start Septra/Bactrim morning and night for the next 7 days. I would encourage you to soak the forearm. There is a central area that looks like it will breakdown enough that if an abscess develops of will drain through that site. If it does begin to drain, please continue warm soaks and encourage the drainage. If you notice that it is getting bigger, more red, more painful your having fevers or worsening chills or develop new symptoms you do need to return to the emergency department The antibiotic prescription was electronically transmitted to [facility] I wish you the best Prescriptions: New sulfamethoxazole-trimethoprim [Bactrim DS] 800-160 mg tablet 1 tab PO BID Qty: 14 0RF No Action triamcinolone acetonide 0.1 % cream topical Label Comments: APPLY TO THE AFFECTED AREA TWO TIMES DAILY. phenazopyridine [Pyridium] 100 mg tablet 100 mg PO TID PRN (Reason: pain) Qty: 7 0RF ondansetron 4 mg tablet,disintegrating 4 mg PO Q8H PRN (Reason: nausea and vomiting) Qty: 10 0RF
[2022-01-10 01:00] VITALS: BP 131/67
[2022-01-10 01:04] VITALS: PULSE 98; O2SAT 100
[2022-01-10] MEDS: TRIMETH/SULFA 160/800 (DS) TABLET 1 TAB PO ×2 (01:15)
== END 2022-01-10 01:20 | disposition home or self-care (01) ==
PROVIDERS: Emergency Provider Emergency Medicine; Family Provider Family Medicine
DX: L03.114 Cellulitis of left upper limb (principal); F11.90 Opioid use, unspecified, uncomplicated
CPT/HCPCS: 99283

== ENCOUNTER 2022-02-16 00:37 | Emergency (ER) | payer OTHER, MEDICAID, SELFPAY ==
[2022-02-16 00:45] VITALS: BP 135/60; PULSE 111; RESP 18; TEMP 37.5; O2SAT 98; BMI 20.7
--- NOTE | 2022-02-16 02:25 | ED.FEMALEGU ---
HPI - Female Genitourinary General Chief complaint: Urogenital-Female Stated complaint: INFECTION IN VAGINA, AND FINGERS AND RASH Time Seen by Provider: 02/16/22 00:38 Source: patient Mode of arrival: Ambulatory History of Present Illness HPI Narrative: 36-year-old female smoker with history of IV drug abuse presents with a chief complaint some pain and tenderness to the tip of her left middle finger in the absence of injury. She is able to make a fist. She denies any numbness, tingling or weakness, there has been no drainage, she does have dry cracking skin as a potential portal for infection. She denies any red streaks extending from the tip of her finger, no discoloration of the nail and no hand, wrist or forearm discomfort. She is had no systemic complaints such as fever, chills nor nausea or vomiting. Additionally she states that she has some redness and pain to her external genitalia for about the last week. Her last period was about 5 days ago and normal for her. She is sexually active with the same partner since October. She denies any obvious discharge. She denies abdominal or pelvic pain. She denies dysuria, frequency or urgency. Related Data Home Medications Medication Instructions Recorded Confirmed triamcinolone acetonide 0.1 % applic topical 07/28/20 07/28/20 topical cream Previous Rx's Medication Instructions Recorded ondansetron 4 mg disintegrating 4 mg PO Q8H PRN nausea and 11/19/21 tablet vomiting #10 tabs phenazopyridine 100 mg tablet 100 mg PO TID PRN pain 6 doses #7 11/19/21 (Pyridium) tabs sulfamethoxazole 800 1 tab PO BID #14 tabs 01/10/22 mg-trimethoprim 160 mg tablet (Bactrim DS) doxycycline hyclate 100 mg tablet 100 mg PO BID #20 tabs 02/16/22 metronidazole 500 mg tablet 500 mg PO Q8H 14 days #42 tabs 02/16/22 Allergies Allergy/AdvReac Type Severity Reaction Status Date / Time mite-Dermatophagoides Allergy Mild Verified 07/07/19 15:32 farinae, zoe mold Allergy Mild Verified 07/07/19 15:32 Review of Systems Review of Systems Narrative: GENERAL: Denies chills, fatigue, malaise, fever, sweats. HEENT: Denies sinus pain, ear pain, sore throat, difficulty swallowing, dizziness. RESPIRATORY: Denies dyspnea, cough, wheezing, hemoptysis, sputum. CARDIOVASCULAR: Denies chest pain, palpitations, orthopnea, edema, GASTROINTESTINAL: Denies nausea, vomiting, abdominal pain, diarrhea, constipation, melena. : See HPI MUSCULOSKELETAL: See HPI SKIN: Denies rash, skin lesions, or other NEUROLOGIC: Denies weakness, headache, numbness, change in speech, confusion, seizures, incoordination. PSYCHIATRIC: No concerning psychosocial issues. 12 point review of systems is negative except for those stated above Patient History Medical History (Updated 02/16/22 @ 02:37 by Vinnie Sage DO) Heroin abuse tobacco type: cigarettes alcohol intake frequency: a few times a week Substance Use Type: marijuana, heroin and methamphetamine Exam Narrative Exam Narrative: GENERAL: [36] year old patient appears stated age. Well-developed patient, in mild distress. HEAD: Atraumatic. Normocephalic. EYES: Pupils equal round and reactive. Extraocular motions intact. No scleral icterus. No injection or drainage. ENT: Nose without bleeding, purulent drainage. Throat without erythema, tonsillar hypertrophy or exudate. Airway patent. NECK: Trachea midline. Non tender CARDIOVASCULAR: Regular rate and rhythm without murmurs, gallops, or rubs. RESPIRATORY: Clear to auscultation. Breath sounds equal bilaterally. No wheezes, rales, or rhonchi. GASTROINTESTINAL: Abdomen soft, non-tender, nondistended. : no obvious external abnormalities. Pelvic performed with patient's permission and female nursing director cost. There is very minimal cervical discharge, no cervical motion tenderness EXTREMITIES: Tip of left middle finger slightly swollen, erythematous and tender, no fluctuance, no lymphangitis, no evidence of subungual hematoma. There may be very early paronychia, no evidence of felon, finger pad is soft, no pain along flexor tendon sheath or in palm to suggest flexor tenosynovitis.. BACK: Nontender without deformity or crepitance. No flank tenderness. NEURO: AOx3. SKIN: No rash or erythema of visible areas Initial Vital Signs Initial Vital Signs: Vital Signs Temperature 99.5 F 02/16/22 00:45 Pulse Rate 111 H 02/16/22 00:45 Respiratory Rate 18 02/16/22 00:45 Blood Pressure 135/60 02/16/22 00:45 Pulse Oximetry 98 02/16/22 00:45 Oxygen Delivery Method 02/16/22 00:45 Course Orders Ordered: ED Orders 02/16/22 00:55 Consult to ORDERING MACHINE OPERATOR - Java Application Engineer Stat 02/16/22 02:30 GC Screen Stat Genital Culture Stat Wet Prep Tric BV Susy Stat Discontinued Medications Ceftriaxone Sodium (Ceftriaxone 1,000 Mg Vial) 500 mg IM NOW ONE Stop: 02/16/22 02:26 Lidocaine HCl (Lidocaine 1% (Pf) 5 Ml) 2.1 ml INJ NOW ONE Stop: 02/16/22 02:26 Vital Signs Vital signs: Vital Signs - 8 hr 02/16/22 00:45 Temperature 99.5 F Pulse Rate 111 H Respiratory Rate 18 Blood Pressure 135/60 Pulse Oximetry 98 Oxygen Delivery Method Room Air MDM - Female Genitourinary Lab Data Labs: Point of Care Testing Test Results Negative Urine Dip Bedside Urine Glucose Negative Bedside Urine Bilirubin - Negative Bedside Urine Ketone - Negative Urine Specific [place] 1.030 Bedside Urine Occult Blood - Negative Bedside Urine pH 6.0 Bedside Urine Protein - Negative Bedside Urine Urobilinogen - Negative Bedside Urine Nitrite - Negative Bedside Urine Leukocytes - Negative Esterase MDM Narrative Medical decision making narrative: Patient with multiple complaints. Finger pain and minimal swelling, pad is soft, no drainable infectious source, no evidence of flexor tenosynovitis. No obvious external exam abnormalities of full the, no swelling, erythema, ulcerations, lacerations or abrasions. Patient is sexually active and does have scant cervical discharge, swabs are obtained and we did talk about treating given risk. Questions have been answered to her apparent satisfaction Discharge Plan Departure Patient Disposition: Home Clinical Impression: Vaginal pain, Cellulitis of finger Instructions: DI for Paronychia, DI for Felon Activity Restrictions/Additional Instructions: *You have been diagnosed with [vaginal pain and left middle finger infection. As we discussed you have been given antibiotics to help cover both of these conditions. There is no indication that other lab work or advanced imaging is needed at this point in time] *What to do: *Please continue to take your regular medications as directed. [ x] New medication prescriptions sent to your pharmacy: [ [facility]] [ ] New medication written as a paper prescription [ ] No new medications given *Please follow up with your primary care provider in 2-3 days, call for an appointment. Let them know you were seen in the Emergency Department and that we ask that you be seen in follow up. We will electronically transmit a record of today's note if your PCP is in our system *If you do not have a primary care provider please contact the [facility] Resource line at [phone]. They will ask some questions about your medical history and help get you set up with a doctor in the community. *Return to Emergency Department if you should have any new, worsening or concerning symptoms, such as [fever greater than 101 F, shaking chills, worsening pain, persistent vomiting or other bothersome symptoms] Prescriptions: New doxycycline hyclate 100 mg tablet 100 mg PO BID Qty: 20 0RF metronidazole 500 mg tablet 500 mg PO Q8H 14 Days Qty: 42 0RF No Action triamcinolone acetonide 0.1 % cream topical Label Comments: APPLY TO THE AFFECTED AREA TWO TIMES DAILY. phenazopyridine [Pyridium] 100 mg tablet 100 mg PO TID PRN (Reason: pain) Qty: 7 0RF ondansetron 4 mg tablet,disintegrating 4 mg PO Q8H PRN (Reason: nausea and vomiting) Qty: 10 0RF sulfamethoxazole-trimethoprim [Bactrim DS] 800-160 mg tablet 1 tab PO BID Qty: 14 0RF
[2022-02-16] MEDS: LIDOCAINE 1% (PF) 5 ML 2.1 ML INJ (02:42)
[2022-02-16] MEDS: cefTRIAXone 1,000 MG VIAL 500 MG IM (02:42)
[2022-02-16 02:55] VITALS: BP 131/60; PULSE 95; RESP 16; O2SAT 98
== END 2022-02-16 02:57 | disposition home or self-care (01) ==
PROVIDERS: Emergency Provider Emergency Medicine; Family Provider Family Medicine
DX: L03.012 Cellulitis of left finger (principal); R10.2 Pelvic and perineal pain
CPT/HCPCS: 81003; 81025; 87070; 87077; 87147; 87205; 87210; 87252; 87491; 87591; 96372; 99283; J0696

== ENCOUNTER 2023-03-23 19:55 | Emergency (ER) | payer OTHER, MEDICAID, SELFPAY ==
[2023-03-23 19:59] VITALS: BP 177/67; PULSE 139; RESP 24; TEMP 37.8; O2SAT 100; BMI 22.2
--- NOTE | 2023-03-23 21:11 | ED_ITS ---
HPI - Skin/Abscess/Foreign Bdy General Chief complaint: Skin/Abscess/Foreign Body Stated complaint: cellulitis Time Seen by Provider: 03/23/23 20:43 Source: patient Mode of arrival: Ambulatory Limitations: no limitations History of Present Illness HPI narrative: Patient is a 37-year-old female who is here for evaluation what she states is an infection on her fingers she also states she has a couple spots on her right upper thigh and left upper thigh that she thinks her infected. She is also having quite a bit of vaginal itching and discharge. She states that there is a ?potential? for concerns of a sexually transmitted infection. She has not tried anything for the symptoms. She states she has had infections in the past requiring antibiotics. She denies fevers, shortness of breath, chest pain or urinary symptoms. Related Data Home Medications Medication Instructions Recorded Confirmed triamcinolone acetonide 0.1 % applic topical 07/28/20 07/28/20 topical cream Previous Rx's Medication Instructions Recorded ondansetron 4 mg disintegrating 4 mg PO Q8H PRN nausea and 11/19/21 tablet vomiting #10 tabs phenazopyridine 100 mg tablet 100 mg PO TID PRN pain 6 doses #7 11/19/21 (Pyridium) tabs sulfamethoxazole 800 1 tab PO BID #14 tabs 01/10/22 mg-trimethoprim 160 mg tablet (Bactrim DS) doxycycline hyclate 100 mg tablet 100 mg PO BID #20 tabs 02/16/22 cephalexin 500 mg capsule 500 mg PO QID 5 days #20 caps 03/23/23 Allergies Allergy/AdvReac Type Severity Reaction Status Date / Time mite-Dermatophagoides Allergy Mild Verified 07/07/19 15:32 farinae, zoe mold Allergy Mild Verified 07/07/19 15:32 Review of Systems Constitutional Constitutional: Reports system reviewed and no additional complaints, except as documented Cardiovascular Cardiovascular: Reports system reviewed and no additional complaints, except as documented Respiratory Respiratory: Reports system reviewed and no additional complaints, except as documented Musculoskeletal Musculoskeletal: Reports system reviewed and no additional complaints, except as documented Integumentary/Breasts Skin/Breast: Reports system reviewed and no additional complaints, except as documented Hematologic/Lymphatic On Anticoagulants: No Patient History Medical History Heroin abuse Social History Smoking Status: Current every day smoker Smoking Status: Current every day smoker tobacco type: cigarettes alcohol intake frequency: holidays/special occasions only Substance Use Type: marijuana, opiates and methamphetamine Exam Initial Vital Signs Initial Vital Signs: Vital Signs Temperature 100.0 F H 03/23/23 19:59 Pulse Rate 139 H 03/23/23 19:59 Respiratory Rate 24 03/23/23 19:59 Blood Pressure 177/67 H 03/23/23 19:59 Pulse Oximetry 100 03/23/23 19:59 Oxygen Delivery Method Room Air 03/23/23 19:59 Const General: cooperative HENMT Head: normal to inspection and normocephalic Other: With nursing at bedside patient does have thick discharge. There are no genital lesions noted. No foul smell. Skin Other: She has 1 spot that is approximately 0.5 cm in diameter in the right upper inner thigh that appears to be a small area of cellulitis. Another similar spot in the left upper inner thigh. She has had does have some redness but it is located around all of her fingernails. No drainable abscess noted. Course Orders Ordered: ED Orders 03/23/23 20:06 Consult to SUPPLY CHAIN PROCUREMENT MANAGER - Thermal Molder Stat 03/23/23 21:30 Genital Culture Stat WHIT Prep Stat Wet Prep Tric BV Susy Stat 03/23/23 21:40 Chlamydia Gonorrhea PCR -URINE Stat Test Urine Stat Urinalysis and Microscopic Stat Urine Culture Stat Discontinued Medications Cephalexin HCl (Cephalexin 250 Mg Capsule) 500 mg PO NOW ONE Stop: 03/23/23 23:58 Vital Signs Vital signs: Vital Signs - 8 hr 03/23/23 19:59 03/23/23 23:14 Temperature 100.0 F H 98 F Pulse Rate 139 H 96 H Respiratory Rate 24 20 Blood Pressure 177/67 H 122/75 Pulse Oximetry 100 98 Oxygen Delivery Method Room Air Room Air MDM - Skin/Abscess/Foreign Bdy Lab Data Attestation: I reviewed the patient's lab results. Labs: Lab Results 03/23/23 Range/Units 21:40 Urine Color Yellow Urine Appearance Clear Urine pH 7.5 (4.5-8.0) Ur Specific [place] 1.015 (1.000-1.035) Urine Protein Negative (Negative) Urine Glucose (UA) Negative (Negative) g/dL Urine Ketones Negative (NEGATIVE) Urine Occult Blood 1+ H (Negative) Urine Nitrate Negative (Negative) Urine Bilirubin Negative (NEGATIVE) Urine Urobilinogen 1.0 (0.2) E.U./dL Ur Leukocyte Esterase Negative (NEGATIVE) Urine RBC 0-1/hpf (0-5/HPF) Urine WBC None seen (0-5/HPF) Ur Squamous Epith Cells 10-30 /hpf H D (0-5/HPF) Urine Bacteria Many (>30) H (None) Ur Culture Indicated? Cult not indicated Urine Test Negative (Negative) Ur Chlamydia DNA (PCR) Not detected N gonorrhoeae DNA (PCR) Not detected MDM Narrative Medical decision making narrative: test is negative, urine does have bacteria but also has a quite a bit of epithelial cells. A urine culture is pending. GC and chlamydia is negative. WHIT, wet prep, Trichomonas and clue cells are all negative. Not convinced she is cellulitis around her fingers however she does have 2 spots which do appear to be superficial cellulitis on both of her inner thighs. No abscesses requiring drainage. Will place her on antibiotics. First dose given here in the emergency department. Prescription was sent to the pharmacy of her choice. She was given return precautions. She expressed understanding and agreement. Discharge Plan Departure Patient Disposition: Home Clinical Impression: Cellulitis Instructions: DI for Cellulitis -- Adult Activity Restrictions/Additional Instructions: Recommend that you take the antibiotics as directed. Contact your primary care doctor for a follow-up. Return to the emergency department for new symptoms. Prescriptions: New cephalexin 500 mg capsule 500 mg PO QID 5 Days Qty: 20 0RF No Action triamcinolone acetonide 0.1 % cream topical Patient Comments: APPLY TO THE AFFECTED AREA TWO TIMES DAILY. doxycycline hyclate 100 mg tablet 100 mg PO BID Qty: 20 0RF phenazopyridine [Pyridium] 100 mg tablet 100 mg PO TID PRN (Reason: pain) Qty: 7 0RF ondansetron 4 mg tablet,disintegrating 4 mg PO Q8H PRN (Reason: nausea and vomiting) Qty: 10 0RF sulfamethoxazole-trimethoprim [Bactrim DS] 800-160 mg tablet 1 tab PO BID Qty: 14 0RF Referrals: *Temp,ED* [Primary Care Provider] - Stand Alone Forms: Patient Portal/API
[2023-03-23 21:53] LABS: Appearance Urine UA CLEAR; Bilirubin Urine UA NEGATIVE (NEGATIVE); Color Urine UA YELLOW; Glucose Urine UA NEGATIVE (Negative); Ketones Urine UA NEGATIVE (NEGATIVE); Leukocyte Esterase Urine UA NEGATIVE (NEGATIVE); Nitrite Urine UA NEGATIVE (Negative); Occult Blood Urine UA 1+ (Negative); Protein Urine UA NEGATIVE (Negative); Specific Gravity Urine UA 1.015 (1.000-1.035)
[2023-03-23 21:55] LABS: Pregnancy Test Urine Negative (Negative)
[2023-03-23 22:00] LABS: Bacteria Urine Many (>30); RBC Urine 0-1/HPF (0-5/HPF); WBC Urine None Seen (0-5/HPF); pH Urine UA 7.5 (4.5-8.0)
[2023-03-23 22:01] LABS: Culture Indicated Urine Cult Not Indicated; Squamous Epithelial Cell Urine 10-30 /HPF (0-5/HPF)
[2023-03-23 23:14] VITALS: BP 122/75; PULSE 96; RESP 20; TEMP 36.6; O2SAT 98
[2023-03-23 23:21] LABS: Urine N gonorrhoeae NOT DETECTED
[2023-03-23 23:46] LABS: Urine Chlamydia NOT DETECTED
[2023-03-24] MEDS: cephALEXin 250 MG CAPSULE 500 MG PO (00:07)
== END 2023-03-24 00:12 | disposition home or self-care (01) ==
PROVIDERS: Emergency Provider Emergency Medicine; Family Provider Family Medicine
DX: L03.012 Cellulitis of left finger (principal); L03.011 Cellulitis of right finger; L03.116 Cellulitis of left lower limb; L03.115 Cellulitis of right lower limb; N89.8 Other specified noninflammatory disorders of vagina
CPT/HCPCS: 81001; 81025; 87070; 87077; 87086; 87147; 87186; 87205; 87210; 87220; 87491; 87591; 99283

== ENCOUNTER 2023-05-04 07:33 | Emergency (ER) | payer OTHER, MEDICAID, SELFPAY ==
[2023-05-04 07:44] VITALS: BP 154/95; PULSE 107; RESP 18; TEMP 36.8; O2SAT 99; BMI 20.9
--- NOTE | 2023-05-04 07:49 | ED.SKABFB ---
HPI - Skin/Abscess/Foreign Bdy General Chief complaint: Skin/Abscess/Foreign Body Stated complaint: states infections all over Time Seen by Provider: 05/04/23 07:40 History of Present Illness HPI narrative: 37yoF presents for skin rash x weeks. Endorses amphetamine abuse. Rash is worse on hands, buttocks, and along bikini line. Tried stopping shaving but bumps are still present. Denies fevers, drainage. Denies possibility of . Related Data Previous Rx's Medication Instructions Recorded sulfamethoxazole 800 1 tab PO Q12H #14 tabs 05/04/23 mg-trimethoprim 160 mg tablet (Bactrim DS) Allergies Allergy/AdvReac Type Severity Reaction Status Date / Time mite-Dermatophagoides Allergy Mild Verified 03/27/23 11:38 farinae, zoe mold Allergy Mild Verified 03/27/23 11:38 Review of Systems Review of Systems Narrative: otherwise negative Patient History Medical History (Updated 05/04/23 @ 07:50 by Dianne Alvarado MD) Heroin abuse Social History Smoking Status: Current every day smoker Smoking Status: Current every day smoker tobacco type: cigarettes alcohol intake frequency: holidays/special occasions only Substance Use Type: marijuana, opiates and methamphetamine Exam Narrative Exam Narrative: General: awake, alert, nontoxic Skin: small abrasions on knuckles : Supervisor [employer] present. Irritated follicles along bikini line without definite abscess Neuro: AO x3, moves all extremities, grossly intact MDM - Skin/Abscess/Foreign Bdy Differential Diagnosis Differential diagnosis: Likely abscess of skin or subcutaneous tissue, viral exanthem and urticaria MDM Narrative Medical decision making narrative: Well appearing patient with what appears to be folliculitis. Likely exacerbated by amphetamine use. No signs or symptoms of sepsis or other systemic infection. Since patient reports this is an ongoing problem not resolved with concervative treatment will start course of antibiotics. Patient advised to not shave her genital region to avoid exacerbating the rash. Denies possibility of , bactrim sent to pharmacy of choice. Discharge Plan Departure Patient Disposition: Home Clinical Impression: Folliculitis Instructions: DI for Folliculitis Prescriptions: New sulfamethoxazole-trimethoprim [Bactrim DS] 800-160 mg tablet 1 tab PO Q12H Qty: 14 0RF Referrals: Miscellaneous,Doctor, MD [Primary Care Provider] - Stand Alone Forms: Patient Portal/API
--- NOTE | 2023-05-04 07:51 | PC.NURSE ---
pt smokes fentanyl and meth, most recently this morning. arrives complaining about wounds in her vaginal area as well as hands feet and face. Stand by assist with Dr Alvarado for assessment.
== END 2023-05-04 07:56 | disposition home or self-care (01) ==
PROVIDERS: Emergency Provider Emergency Medicine; Family Provider Family Medicine
DX: L73.9 Follicular disorder, unspecified (principal)
CPT/HCPCS: 99281

== ENCOUNTER 2024-03-10 19:27 | Emergency (ER) | payer OTHER, SELFPAY ==
[2024-03-10 19:37] VITALS: BP 135/71; PULSE 67; RESP 16; TEMP 36.8; O2SAT 99; BMI 23.3
--- NOTE | 2024-03-10 20:31 | PC.NURSE ---
Patient notified registration that they were leaving.
== END 2024-03-10 20:30 | disposition left against medical advice (07) ==
PROVIDERS: Family Provider Family Medicine
DX: G43.909 Migraine, unspecified, not intractable, without status migrainosus (principal)
CPT/HCPCS: 99281

== ENCOUNTER 2024-06-20 19:01 | Emergency (ER) | payer OTHER, SELFPAY ==
[2024-06-20 19:19] VITALS: BP 149/82; PULSE 93; RESP 18; TEMP 36.6; O2SAT 99; BMI 18.7
== END 2024-06-21 00:20 | disposition left against medical advice (07) ==
PROVIDERS: Emergency Provider Emergency Medicine; Family Provider Family Medicine
CPT/HCPCS: 99281

== ENCOUNTER 2024-10-17 22:35 | Emergency (ER) | payer OTHER, SELFPAY ==
[2024-10-17] MEDS: PROPARACAINE 0.5% OPHTH SOL 1 DROPS EYE-BOTH (22:41)
[2024-10-17] MEDS: FLUORESCEIN 1 MG STRIP EYE-BOTH (22:41)
[2024-10-17 22:43] VITALS: BP 138/62; PULSE 93; RESP 16; TEMP 36.8; O2SAT 99; BMI 26.6
[2024-10-17 22:45] VITALS: PULSE 83; O2SAT 97
--- NOTE | 2024-10-17 22:46 | ED_ITS ---
HPI - Eye Problem General Chief complaint: Eye Problems Stated complaint: Lt eye pain, feels something is in there Time Seen by Provider: 10/17/24 22:36 Source: patient Mode of arrival: Ambulatory History of Present Illness HPI Narrative: Patient is a 39-year-old female on methadone coming into the ED from home for evaluation of left eye pain, states that a few days ago she open a window and something flew into her eye. She denies visual disturbances, is up-to-date to tetanus. She states that her pain is discomfort to just her left eye. Does not wear contacts states that she only wears readers. Denies any other symptoms at this time Related Data Previous Rx's ?Medication ?Instructions ?Recorded sulfamethoxazole 800 1 tab PO Q12H #14 tabs 05/04 mg-trimethoprim 160 mg tablet (Bactrim DS) erythromycin 5 mg/gram (0.5 %) eye 0.5 inch EYE-BOTH Q 6H 5 days #3.5 10/17/24 ointment grams Allergies Allergy/AdvReac Type Severity Reaction Status Date / Time mite-Dermatophagoides Allergy Mild Verified 03/10/24 19:37 farinae, zoe mold Allergy Mild Verified 03/10/24 19:37 Review of Systems Review of Systems Narrative: General: Denies fever, chills, weight loss HEENT: Left eye pain, Denies headache, eye drainage, eye irritation, head trauma, sore throat, voice change Cardiovascular: Denies any chest pain, palpitations, tachycardia Respiratory: Denies any shortness of breath, cough, wheeze, stridor GI/: Denies any abdominal pain, nausea, vomiting, diarrhea, bright red blood per rectum, melanotic stools, urinary frequency, urinary retention, dysuria, hematuria MSK: Denies any joint pain, muscle pains, swelling Skin: Denies any rashes, lesions, discoloration Neuro: Denies any headache, lightheadedness, dizziness, fainting, weakness Psych: Denies SI/HI Patient History Medical History (Updated 10/17/24 @ 23:02 by Satish Gillis DO) Heroin abuse Smoking Status: Current every day smoker tobacco type: cigarettes alcohol intake frequency: holidays/special occasions only Exam Narrative Exam Narrative: General: Cooperative, well-developed, not in acute distress HEENT: Normocephalic, atraumatic, PERRLA, patient with corneal abrasions noted to bilateral eyes, no involvement of the iris or pupil. Negative Noemi sign Neck: Active full range of motion, atraumatic Chest: Normal to inspection, negative crepitus, no overlying erythema ecchymosis Respiratory: Normal respiratory effort, not in acute respiratory distress, clear to auscultation bilaterally negative cough, wheeze, tachypnea, rhonchi, rales Cardiology: Regular rate rhythm negative gallop, murmur, rubs GI/: No tenderness to palpation, soft, non rigid, normal to inspection, exam deferred MSK: Full active range of motion in all 4 extremities, atraumatic, no tenderness to palpation of any bony prominences Skin: No rashes or lesions noted Neuro: Alert awake oriented x3, moves all 4 extremities spontaneously, cranial nerves intact, able to answer all questions appropriately follows commands appropriately Psych: Cooperative, negative suicidal or homicidal ideations Initial Vital Signs Initial Vital Signs: Vital Signs Temperature 98.3 F 10/17/24 22:43 Pulse Rate 93 H 10/17/24 22:43 Respiratory Rate 16 10/17/24 22:43 Blood Pressure 138/62 10/17/24 22:43 Pulse Oximetry 99 10/17/24 22:43 Oxygen Delivery Method Room Air 10/17/24 22:43 Course Orders Ordered: Discontinued Medications Fluorescein Sodium (Fluorescein 1 Mg Strip) 1 mg EYE-BOTH NOW ONE Stop: 10/17/24 22:38 Last Admin: 10/17/24 22:41 Dose: 1 mg Documented By: LM Proparacaine HCl (Proparacaine 0.5% Ophth Maci) 1 drops EYE-BOTH NOW ONE Stop: 10/17/24 22:37 Last Admin: 10/17/24 22:41 Dose: 1 drop Documented By: LM Vital Signs Vital signs: Vital Signs - 8 hr 10/17/24 22:43 Temperature 98.3 F Pulse Rate 93 H Respiratory Rate 16 Blood Pressure 138/62 Pulse Oximetry 99 Oxygen Delivery Method Room Air MDM - Eye Problem Differential Diagnosis Differential diagnosis: Likely corneal abrasion, conjunctivitis, subconjunctival hemorrhage, corneal ulcer and ruptured globe MDM Narrative Medical decision making narrative: Patient is a 39-year-old female on methadone presenting for left eye discomfort pain, states that a few days ago she open a window and felt like something flew into her eye, since then she has been having pain discomfort to her left eye. On exam she has a corneal abrasion noted to her left eye not involving the iris or pupil, I did also note a corneal abrasion to the right eye, also not involving the people or iris. She does not wear contacts only uses readers. She is not having any other visual disturbances. Patient will be treated with erythromycin ointment and instructed follow up with the primary care and Ophthalmology in outpatient setting, she verbalized understanding of this and agrees to being discharged home with outpatient follow up patient is up-to-date on tetanus Discharge Plan Departure Patient Disposition: Home Clinical Impression: Corneal abrasion Instructions: DI for Corneal Abrasion Activity Restrictions/Additional Instructions: Please follow up with your primary care doctor and Ophthalmology as needed Please read the discharge instructions sheet carefully and bring all papers to all doctor follow-up visits, as it may contain information that your doctor may want to see. Disease processes change and evolve, if your symptoms worsen or if you develop any new symptoms that are concerning to you please return for evaluation. Your evaluation today does not show any evidence of any life- threatening/serious illnesses requiring admission to the hospital or surgery. Please follow-up with your doctor for re-evaluation in approximately 1 day. Seek immediate medical attention for any worrisome symptoms. *If you do not have a primary care provider please contact the [facility] Resource line at [phone]. They will ask some questions about your medical history and help get you set up with a doctor in the community. Prescriptions: New erythromycin 5 mg/gram (0.5 %) ointment 0.5 inch EYE-BOTH Q6H 5 Days Qty: 3.5 0RF No Action sulfamethoxazole-trimethoprim [Bactrim DS] 800-160 mg tablet 1 tab PO Q12H Qty: 14 0RF Referrals: Miscellaneous,Doctor, [Primary Care Provider, Medical] Stand Alone Forms: Patient Portal/API
[2024-10-17 23:00] VITALS: BP 122/59; PULSE 88; O2SAT 98
[2024-10-17] MEDS: ERYTHROMYCIN OPHTH 1 GM OINT 1 APPLIC EYE-BOTH (23:03)
== END 2024-10-17 23:08 | disposition home or self-care (01) ==
PROVIDERS: Emergency Provider Student in an Organized Health Care Education/Training Program; Family Provider Family Medicine
DX: S05.02XA Injury of conjunctiva and corneal abrasion without foreign body, left eye, initial encounter (principal); X58.XXXA Exposure to other specified factors, initial encounter
CPT/HCPCS: 99282